=== PATIENT | female | born 1930 | race Two or more races ===

== ENCOUNTER 2018-12-04 14:10 | Outpatient (CLI) | payer MEDICARE, BC ==
[2018-12-04 15:41] LABS: BASOPHILS % (AUTO) 0.6 % (0.0-2.0); EOSINOPHILS % (AUTO) 4.3 % (0.0-6.0); HEMATOCRIT 29 % (33-45); HEMOGLOBIN 9.2 g/dL (11.5-14.8); LYMPHOCYTES # (AUTO) 1.8 /CMM (0.8-4.8); MEAN CORPUSCULAR HGB CONC 32 g/dl (31.0-36.0); MEAN CORPUSCULAR VOLUME 79 fL (82-100); MONOCYTES # (AUTO) 0.7 /CMM (0.1-1.30); MONOCYTES % (AUTO) 9.5 % (2.0-12.0); NEUTROPHILS # (AUTO) 4.4 /CMM (1.8-8.9); NEUTROPHILS % (AUTO) 60.6 % (43.0-81.0); PLATELET COUNT (AUTO) 409 /CMM (150-450); RED BLOOD CELL COUNT(AUTO) 3.66 MIL/uL (4.0-5.2); WHITE BLOOD COUNT (AUTO) 7.3 K/uL (4.3-11.0)
[2018-12-04 15:47] LABS: ALBUMIN 3.2 g/dL (3.4-5.0)
[2018-12-04 15:50] LABS: PREALBUMIN 30.4 MG/DL (18.0-35.7)
== END 2018-12-04 23:59 | disposition home health service (06) ==
LOC: WOU 14:10
PROVIDERS: ATTEND Podiatrist Foot & Ankle Surgery
DX: I87.312 Chronic venous hypertension (idiopathic) with ulcer of left lower extremity (principal); L97.822 Non-pressure chronic ulcer of other part of left lower leg with fat layer exposed; E03.9 Hypothyroidism, unspecified; M79.662 Pain in left lower leg
CPT/HCPCS: 11042; 11045; 36415; 82040; 83036; 84134; 85025; 87070; 87077; 87186; 88305; 88312; A5102; A6402 ×3; J7040

== ENCOUNTER 2018-12-22 14:00 | Outpatient (CLI) | payer MEDICARE, BC | END 2018-12-22 23:59 | disposition home health service (06) | LOC: WOU 14:00 | PROVIDERS: ATTEND Podiatrist Foot & Ankle Surgery | DX: I87.312 Chronic venous hypertension (idiopathic) with ulcer of left lower extremity (principal); L97.822 Non-pressure chronic ulcer of other part of left lower leg with fat layer exposed; E03.9 Hypothyroidism, unspecified | CPT/HCPCS: A6402; G0463 ==

== ENCOUNTER 2018-12-25 05:49 | Inpatient (IN) | payer MEDICARE, OTHER ==
[~2018-12-25] VITALS: Ht 165.1 cm; Wt 50.3 kg
[2018-12-25 06:00] VITALS: BP 127/72
--- NOTE | 2018-12-25 06:00 | NUR ---
RECEIVED PATIENT FOR DAY SURGERY. PATIENT ACCOMPANIED BY TWO CAREGIVERS. AO X 3, ABLE TO MAKE NEEDS KNOWN. EASILY BECOMES ANXIOUS. LEFT AC GAUZE 20 IV INSERTED. LEFT LOWER EXTREMITY DRESSING INTACT. SAFETY REMINDERS GIVEN. WILL CONTINUE TO MONITOR.
[2018-12-25] MEDS ORDERED: ANESTHESIA TRAY IN PYXIS 1 EA TRAY MC ONE (07:00)
[2018-12-25] MEDS ORDERED: LEVO50TA8 PO (07:02)
[2018-12-25] MEDS ORDERED: LORAZEPAM (07:02)
[2018-12-25] MEDS ORDERED: BUPIVACAINE 0.5 % PF 150 MG/30 ML VIAL ONE (07:10)
--- NOTE | 2018-12-25 07:10 | NUR ---
MS RN INITIAL NOTES Report received. Patient received in bed, awake and verbally responsive. Support system at bedside before surgery. No signs and symptoms of distress. Safety measure in place. Bed in lowest position with call light within reach. Will continue to monitor and assess patient.
--- NOTE | 2018-12-25 07:30 | NUR ---
MS COMMUNITY RECREATION COORDINATOR NOTES Patient is being transported to OR for same day surgery in stable condition.
[2018-12-25] MEDS ORDERED: LIDOCAINE 1%-EPI 1:100,000 20 ML VIAL ONE (07:57)
[2018-12-25] MEDS ORDERED: LIDOCAINE 0.5%-EPI 1:200,000 50 ML VIAL ONE (07:57)
--- NOTE | 2018-12-25 09:10 | NUR ---
MS SPECIAL FORCES SENIOR SERGEANT NOTES Patient returned from same day surgery in stable condition. Will continue to monitor and assess patient per protocol 131/70 18 78 97.5 94% RA
--- NOTE | 2018-12-25 10:09 | NUR ---
MS PROPAGATION MANAGER NOTES Patient has been medically stable with no complaints of pain/discomfort. Vitals WNL. Afebrile. [facility] ([facility]) aware of discharge. Patient urinated. No signs and symptoms of distress. No SOB/labored breathing noted. LLE wound s/p debridement by Dr. Ray is covered with dressing clean, dry and intact. IV access removed with cath tip intact: no bleeding noted. Patient escorted to lobby by MOTEL FOOD SERVICE SUPERVISOR and 2 personal caregivers with personal belongings (clothes)
== END 2018-12-25 11:00 | disposition home or self-care (01) | DRG 264 ==
LOC: DS 05:49 → MEDSG2 05:52
PROVIDERS: ADMIT Registered Nurse; ATTEND Registered Nurse
PROC: 0JBP0ZZ Excision of Left Lower Leg Subcutaneous Tissue and Fascia, Open Approach (ICD-10-PCS; principal; 2018-12-25)
DX: I87.312 Chronic venous hypertension (idiopathic) with ulcer of left lower extremity (principal); L97.823 Non-pressure chronic ulcer of other part of left lower leg with necrosis of muscle; F41.9 Anxiety disorder, unspecified; E03.9 Hypothyroidism, unspecified; Z79.899 Other long term (current) drug therapy
CPT/HCPCS: 87070-TC; 87186-TC; A6402; G0378; J0690; J2370; J2704; J3490

== ENCOUNTER 2019-01-15 14:00 | Outpatient (CLI) | payer MEDICARE, OTHER ==
[~2019-01-15 14:00] MED LIST: LEVO50TA8 PO; LORAZEPAM
== END 2019-01-15 23:59 | disposition home health service (06) ==
LOC: WOU 14:00
PROVIDERS: ATTEND Podiatrist Foot & Ankle Surgery
DX: I87.312 Chronic venous hypertension (idiopathic) with ulcer of left lower extremity (principal); L97.923 Non-pressure chronic ulcer of unspecified part of left lower leg with necrosis of muscle; M79.662 Pain in left lower leg; E03.9 Hypothyroidism, unspecified
CPT/HCPCS: 11043; 11046; A6402; A6452; J7040

== ENCOUNTER 2019-02-26 12:54 | Outpatient (CLI) | payer MEDICARE, OTHER | END 2019-02-26 23:59 | disposition home health service (06) | LOC: WOU 12:54 | PROVIDERS: ATTEND Podiatrist Foot & Ankle Surgery | DX: I87.312 Chronic venous hypertension (idiopathic) with ulcer of left lower extremity (principal); L97.823 Non-pressure chronic ulcer of other part of left lower leg with necrosis of muscle; M79.662 Pain in left lower leg; E03.9 Hypothyroidism, unspecified; F41.9 Anxiety disorder, unspecified; Z79.899 Other long term (current) drug therapy | CPT/HCPCS: 11042; 11045; 87070; 87075; 87077; 87186; A6253; J7040 ==

== ENCOUNTER 2019-03-12 06:01 | Day surgery (SDC) | payer MEDICARE, OTHER ==
[~2019-03-12] VITALS: Ht 165.1 cm; Wt 50.9 kg
--- NOTE | 2019-03-12 06:30 | NUR ---
ms brian notes received a direct admit for day surgery / wound debridement. pt is A/O X3 able to give information about herself . caregiver also helped to answered some of my question. heplock inserted in her right forearm gauge 20. pt also signed all the consent by herself and aware what kind of procedure that she will getting today. kept her warm and comfortable at all times.
[2019-03-12 06:41] VITALS: BP 160/69
[2019-03-12] MEDS ORDERED: ANESTHESIA TRAY IN PYXIS 1 EA TRAY MC ONE (07:01)
[2019-03-12] MEDS ORDERED: LIDOCAINE HCL/MPF 1% 30 ML VIAL IJ ONE (07:01)
[2019-03-12] MEDS ORDERED: BUPIVACAINE 0.5 % PF 150 MG/30 ML VIAL ONE (07:01)
[2019-03-12] MEDS ORDERED: BUPIVACAINE MPF 0.5% W/EPI INJ 30 ML VIAL ONE (07:02)
--- NOTE | 2019-03-12 07:30 | NUR ---
ms transit manager closing notes.. day surgery nurse called earlier( 06:30 ) and spoke to the charge nurse Monique and telling us that pt needs to be in day surgery . checklist all done and day surgery staff picked up the pt. pt awake and alert no discomfort noted. accompanied by her family and her caregiver to second floor. charge nurse monique aware.
--- NOTE | 2019-03-12 09:20 | NUR ---
DAY SURGERY PATIENT , D/C HOME PER DR. DEVLIN . PATIENT AWAKE , A/OX4 , VS ARE STABLE AND WITHIN NORMAL RANGE. ON ROOM AIR. D/C INSTRUCTIONS PROVIDED: WBAT, KEEP DRESSING INTACT, G/U WITH CLINIC IN ONE WEEK . PATIENT VERBALIZED UNDERSTANDING. EDUCATIONAL MATERIALS PROVIDED. IV LINE REMOVED. ID BAND REMOVED. PATIENT SAFELY TRANSFERRED TO [facility] VIA WHEEL[facility]AIRE ACCOMPANIED BY FINISH MENDER AND SANJU PALMA.
== END 2019-03-12 14:00 | disposition home or self-care (01) ==
LOC: DS 06:01 → UNDOADMIN 06:02 → MED 06:02 → UNDODISIN 09:25 → DS 14:00
PROVIDERS: ATTEND Podiatrist Foot & Ankle Surgery
DX: I87.312 Chronic venous hypertension (idiopathic) with ulcer of left lower extremity (principal); Z79.899 Other long term (current) drug therapy; D64.9 Anemia, unspecified
CPT/HCPCS: 11042; 11045; 87070; 87077; 87186; J2704; J3490 ×2; G0378

== ENCOUNTER 2019-03-30 10:15 | Outpatient (CLI) | payer MEDICARE, OTHER | END 2019-03-30 23:59 | disposition home health service (06) | LOC: WOU 10:15 | PROVIDERS: ATTEND Podiatrist Foot & Ankle Surgery | DX: I87.312 Chronic venous hypertension (idiopathic) with ulcer of left lower extremity (principal); L97.823 Non-pressure chronic ulcer of other part of left lower leg with necrosis of muscle; M79.662 Pain in left lower leg | CPT/HCPCS: 11043; 11046; A6253; A6452; J7040 ==

== ENCOUNTER 2019-04-13 10:45 | Outpatient (CLI) | payer MEDICARE, OTHER | END 2019-04-13 23:59 | disposition home health service (06) | LOC: WOU 10:45 | PROVIDERS: ATTEND Podiatrist Foot & Ankle Surgery | DX: I87.312 Chronic venous hypertension (idiopathic) with ulcer of left lower extremity (principal); L97.823 Non-pressure chronic ulcer of other part of left lower leg with necrosis of muscle; M79.662 Pain in left lower leg | CPT/HCPCS: 11043; 11046; A6253; A6452 ×2; J7040 ×2 ==

== ENCOUNTER 2019-06-01 11:57 | Outpatient (CLI) | payer MEDICARE, OTHER | END 2019-06-01 23:59 | disposition home health service (06) | LOC: WOU 11:57 | PROVIDERS: ATTEND Podiatrist Foot & Ankle Surgery | DX: I87.312 Chronic venous hypertension (idiopathic) with ulcer of left lower extremity (principal); L97.822 Non-pressure chronic ulcer of other part of left lower leg with fat layer exposed; M79.662 Pain in left lower leg | CPT/HCPCS: 11042; A6253; J7040; 15271 ==

== ENCOUNTER 2019-06-11 11:20 | Outpatient (CLI) | payer MEDICARE, OTHER | END 2019-06-11 23:59 | disposition home health service (06) | LOC: WOU 11:20 | PROVIDERS: ATTEND Podiatrist Foot & Ankle Surgery | DX: I87.312 Chronic venous hypertension (idiopathic) with ulcer of left lower extremity (principal); L97.822 Non-pressure chronic ulcer of other part of left lower leg with fat layer exposed; E03.9 Hypothyroidism, unspecified; R26.9 Unspecified abnormalities of gait and mobility; M79.662 Pain in left lower leg | CPT/HCPCS: 11043; A6253; A6452; J7040 ==

== ENCOUNTER 2019-07-25 09:24 | Inpatient (IN) | payer MEDICARE, OTHER ==
[~2019-07-25] VITALS: Ht 160 cm; Wt 57.2 kg
--- NOTE | 2019-07-25 09:30 | NUR ---
BIB SOCCER BALL ASSEMBLER SENT BY PMD FOR LOW HEMOGLOBIN OF 5.6. PATIENT A/OX3, BREATHING EVEN AND UNLABORED, NO SOB NOTED, NEEDS ATTENDED, ATTACHED TO THE CALCULUS PROFESSOR.
--- NOTE | 2019-07-25 09:39 | NUR ---
SEEN AND EXAMINED BY .
[2019-07-25 09:51] LABS: BASOPHILS # (AUTO) 0.1 /CMM (0.0-0.2); BASOPHILS % (AUTO) 0.5 % (0.0-2.0); EOSINOPHILS % (AUTO) 3.4 % (0.0-6.0); HEMATOCRIT 21 % (33-45); LYMPHOCYTES # (AUTO) 2.2 /CMM (0.8-4.8); LYMPHOCYTES % (AUTO) 21.5 % (20.0-44.0); MEAN CORPUSCULAR HGB CONC 29 g/dl (31.0-36.0); MEAN CORPUSCULAR VOLUME 64 fL (82-100); MONOCYTES # (AUTO) 0.6 /CMM (0.1-1.30); MONOCYTES % (AUTO) 6.3 % (2.0-12.0); NEUTROPHILS % (AUTO) 68.3 % (43.0-81.0); PLATELET COUNT (AUTO) 661 /CMM (150-450); WHITE BLOOD COUNT (AUTO) 10.3 K/uL (4.3-11.0)
[2019-07-25 09:58] LABS: HEMOGLOBIN 6.2 g/dL (11.5-14.8)
[2019-07-25] MEDS ORDERED: IV NS 0.9% 1,000 ML BAG IV ONE (10:00)
[2019-07-25] MEDS ORDERED: LORA-258 PO (10:03)
[2019-07-25] MEDS ORDERED: LEVO100T PO (10:03)
[2019-07-25] MEDS ORDERED: CYAN100096 PO (10:03)
[2019-07-25] MEDS ORDERED: ASCO500T9 PO (10:03)
[2019-07-25] MEDS ORDERED: MULT-24 PO (10:03)
[2019-07-25 10:06] LABS: ALANINE AMINOTRANSFERASE 15 U/L (12-78); ALBUMIN 2.9 g/dL (3.4-5.0); ALKALINE PHOSPHATASE 57 U/L (46-116); ASPARTATE AMINOTRANSFERASE 13 U/L (15-37); BILIRUBIN,DIRECT 0.1 mg/dL (0.0-0.2); BILIRUBIN,TOTAL 0.3 mg/dL (0.2-1.0); CARBON DIOXIDE 26 mmol/L (21-32); CHLORIDE 107 mmol/L (98-107); CREATININE 0.7 mg/dL (0.6-1.3); GLUCOSE 114 mg/dL (74-106); POTASSIUM 3.9 mmol/L (3.5-5.1); SODIUM SERUM 142 mmol/L (136-145); TOTAL PROTEIN, SERUM 7.1 g/dL (6.4-8.2); UREA NITROGEN, BLOOD 18 mg/dL (7-18)
--- NOTE | 2019-07-25 10:10 | NUR ---
MOVE SHEET TURNED IN TO ADMITTING AND CALLED FOR TELE BED.
--- NOTE | 2019-07-25 10:26 | NUR ---
EDDA CALLED ITS MELI
--- NOTE | 2019-07-25 10:29 | NUR ---
ROOM GIVEN 310-1 RN FOR REPORT: GRISEL
--- NOTE | 2019-07-25 10:33 | NUR ---
REPORT GIVEN TO GRISEL BENDER.
--- NOTE | 2019-07-25 11:15 | NUR ---
SENIOR DATASTAGE DEVELOPER NOTES PATIENT ARRIVED AT UNIT VIA GURNEY. REPORT RECEIVED FROM CHRIS BENDER. PATIENT AWAKE, A/O X 3. NO ACUTE DISTRESS. NO CHANGES IN LOC NOTED. INSURANCE FOLLOW UP REP APPLIED, SR 81. CAREGIVER WHO IS ALSO FAMILY AT BEDSIDE. PATIENT ORIENTED TO UNIT, STAFF, PLAN OF CARE AND VERBALIZED UNDERSTANDING. WILL CONTINUE TO MONITOR. BED LOCKED AND IN LOW POSITION. BILATERAL UPPER SIDE RAILS UP AND LOCKED. CALL LIGHT WITHIN EASY REACH
--- NOTE | 2019-07-25 11:19 | NUR ---
PATIENT TRANSFERRED TO ROOM 327-2 VIA ACLS PROTOCOL. NO DSITRESS NOTED. ENDORSED TO GRISEL BENDER.
[2019-07-25 12:53] LABS: EOSINOPHILS % (MANUAL) 5 % (0-4); LYMPHOCYTES % (MANUAL) 14 % (16-48); MONOCYTES % (MANUAL) 10 % (0-11.0); NEUTROPHILS % (MANUAL) 71 (42-76)
--- NOTE | 2019-07-25 12:55 | NUR ---
DIALYSIS BIOMED TECHNICIAN NOTES PLACED CALL TO BLOOD BANK, BLOOD NOT AVAILABLE YET. PATIENT AWARE, VERBALIZED UNDERSTANDING. PATIENT ALSO VERBALIZED THAT SHE DOES NOT WANT TO STAY IN THE HOSPITAL OVERNIGHT. STRONGLY INSISTING THAT SHE GOES HOME AFTER BLOOD TRANSFUSION. PATIENT UNDER MEDICAL SUPERVISION OF MELI CARRILLO DNP. MADE AWARE. WILL CONTINUE TO MONITOR
[2019-07-25] MEDS ORDERED: ZOLPIDEM TARTRATE 5 MG TABLET PO PRN (13:00)
[2019-07-25] MEDS ORDERED: HYDROCODONE/APAP 5/325MG 1 EACH TABLET PO PRN (13:00)
[2019-07-25] MEDS ORDERED: ONDANSETRON HCL/PF 4 MG/2 ML VIAL IVP PRN (13:00)
[2019-07-25] MEDS ORDERED: MAGNESIUM HYDROXIDE 30 ML UDC PO PRN (13:00)
[2019-07-25] MEDS ORDERED: ACETAMINOPHEN 325 MG TABLET PO PRN (13:00)
[2019-07-25] MEDS ORDERED: Z GUARD REMEDY 2 OZ OINT TP PRN (13:00)
[2019-07-25 14:05] VITALS: BP 135/69
--- NOTE | 2019-07-25 14:13 | NUR ---
CAR MECHANIC HELPER NOTES BLOOD TRANSFUSION INITIATED. PATIENT TOLERATING WELL. WILL CONTINUE TO MONITOR
[2019-07-25 14:25] VITALS: BP 134/62
--- NOTE | 2019-07-25 16:49 | NUR ---
DORMITORY COUNSELOR NOTES PATIENT SEEN AND EXAMINED BY MELI CARRILLO DNP. PATIENT INSISTED THAT SHE GO HOME AFTER BLOOD TRANSFUSION. RISKS AND BENEFITS EXPLAINED BUT TO NO AVAIL. PATIENT STRONGLY REFUSED TO STAY. PATIENT WILL SIGN AMA FORM PRIOR TO LEAVING HOSPITAL. MELI CARRILLO DNP AWARE AND OK. WILL CONTINUE TO MONITOR
--- NOTE | 2019-07-25 17:14 | NUR ---
VASCULAR NEUROLOGIST NOTES BLOOD TRANSFUSION ENDED. PATIENT TOLERATED PROCEDURE WELL. NO ACUTE DISTRESS. NO REACTION NOTED. WILL CONTINUE TO MONITOR
--- NOTE | 2019-07-25 18:02 | NUR ---
PARLOR MAID NOTES PATIENT TO DISCHARGE FROM UNIT. TO DISCHARGE HOME AGAINST MEDICAL ADVICE. AMA FORM SIGNED BY PATIENT AND WITNESSED BY LICENSED STAFF. IV REMOVED, TIP INTACT, PRESSURE DRESSING PLACED ON SITE. ALL BELONGINGS COMPLETE ON DISCHARGE, NO REPORT OF MISSING INVENTORY. NO ALLERGIC REACTION NOTED FROM BLOOD TRANSFUSION. NO NEW SKIN BREAKDOWN NOTED ON DISCHARGE. PATIENT ACCOMPANIED BY NURSING STAFF TO PARKING LOT. LEFT HOSPITAL PREMISES VIA PRIVATE CAR WITH CAREGIVERS. MELI CARRILLO DNP AWARE OF DISCHARGE.
== END 2019-07-25 18:10 | disposition left against medical advice (07) | DRG 812 ==
LOC: ER 09:28 → TELE 10:37
PROVIDERS: ADMIT Nurse Practitioner Acute Care; ATTEND Nurse Practitioner Acute Care
PROC: 30233N1 Transfusion of Nonautologous Red Blood Cells into Peripheral Vein, Percutaneous Approach (ICD-10-PCS; principal; 2019-07-25)
DX: D50.9 Iron deficiency anemia, unspecified (principal); Z79.899 Other long term (current) drug therapy
CPT/HCPCS: 36415; 71045-TC; 80048-TC; 80076-TC; 84484-TC; 85025-TC; 85730-TC; 86850-TC; 86921-TC; 87081-TC; A6253; A6403; G0378; J7030; P9016-BL

== ENCOUNTER 2019-08-03 09:48 | Emergency (ER) | payer MEDICARE, OTHER ==
[~2019-08-03] VITALS: Ht 160 cm; Wt 56.7 kg
[~2019-08-03 09:48] MED LIST changes: +ASCO500T9 PO; +CYAN100096 PO; +LEVO100T PO; -LEVO50TA8 PO; +LORA-258 PO; -LORAZEPAM; +MULT-24 PO
[2019-08-03 10:20] LABS: BASOPHILS % (AUTO) 0.5 % (0.0-2.0); EOSINOPHILS % (AUTO) 6.2 % (0.0-6.0); HEMATOCRIT 26 % (33-45); HEMOGLOBIN 7.8 g/dL (11.5-14.8); LYMPHOCYTES # (AUTO) 2.5 /CMM (0.8-4.8); LYMPHOCYTES % (AUTO) 28.1 % (20.0-44.0); MEAN CORPUSCULAR HGB CONC 29 g/dl (31.0-36.0); MEAN CORPUSCULAR VOLUME 67 fL (82-100); MONOCYTES # (AUTO) 0.5 /CMM (0.1-1.30); MONOCYTES % (AUTO) 5.6 % (2.0-12.0); NEUTROPHILS # (AUTO) 5.3 /CMM (1.8-8.9); NEUTROPHILS % (AUTO) 59.6 % (43.0-81.0); PLATELET COUNT (AUTO) 538 /CMM (150-450); RED BLOOD CELL COUNT(AUTO) 3.92 MIL/uL (4.0-5.2); WHITE BLOOD COUNT (AUTO) 8.8 K/uL (4.3-11.0)
[2019-08-03 10:42] LABS: CALCIUM, SERUM 8.9 mg/dL (8.5-10.1); CARBON DIOXIDE 23 mmol/L (21-32); CHLORIDE 107 mmol/L (98-107); CREATININE 0.5 mg/dL (0.6-1.3); GLUCOSE 132 mg/dL (74-106); POTASSIUM 3.8 mmol/L (3.5-5.1); SODIUM SERUM 141 mmol/L (136-145); UREA NITROGEN, BLOOD 20 mg/dL (7-18)
[2019-08-03 10:46] LABS: ALANINE AMINOTRANSFERASE 14 U/L (12-78); ALBUMIN 2.9 g/dL (3.4-5.0); ALKALINE PHOSPHATASE 55 U/L (46-116); ASPARTATE AMINOTRANSFERASE 15 U/L (15-37); BILIRUBIN,DIRECT 0.1 mg/dL (0.0-0.2); BILIRUBIN,TOTAL 0.4 mg/dL (0.2-1.0); TOTAL PROTEIN, SERUM 7.3 g/dL (6.4-8.2)
--- NOTE | 2019-08-03 13:25 | NUR ---
Blood Transfussion PRBC started as ordered
--- NOTE | 2019-08-03 14:54 | NUR ---
Pt for discharge -Patient discharged to home in stable condition. Written and verbal after care instructions given. Honing Machine Try Out Setter- [place] verbalizes understanding of instruction. Home by private ambulance as arranged by CG
[2019-08-03 15:18] VITALS: BP 123/61
--- NOTE | 2019-08-04 16:00 | NUR ---
CALL FROM LAB,PRELIMINARY RESULT FOR BLOOD CULTURE =GRAM POSITIVE COCCI, FINAL RESULT WILL BE FROM [facility]
--- NOTE | 2019-08-04 16:08 | NUR ---
DR LANDAVERDE INFORMED AND SAID THAT HE WILL CONTACT PATIENT
== END 2019-08-03 15:19 | disposition home or self-care (01) ==
LOC: ER 10:21
DX: R53.1 Weakness (principal); D64.9 Anemia, unspecified; Z98.890 Other specified postprocedural states; Z79.899 Other long term (current) drug therapy
CPT/HCPCS: 36415; 36430; 71045; 80048; 80076; 83605; 84484; 85025; 86850; 86921; 87040 ×2; 93005 ×2; 99285; J7050; P9016-BL